=== PATIENT | male | born 1950 | race Asian ===

== ENCOUNTER 2016-10-11 10:47 | Day surgery (SDC) | payer BC ==
[~2016-10-11] VITALS: Ht 182.9 cm; Wt 63.2 kg
[2016-10-11 12:36] VITALS: Ht 182.9 cm; Wt 63.2 kg
[2016-10-11] MEDS ORDERED: IBUPROFEN PO (12:43)
[2016-10-11 14:22] VITALS: BP 155/83; PULSE 65; RESP 16
[2016-10-11] MEDS ORDERED: MIDAZOLAM 1 MG/ML 2 ML INJ ONE (16:01)
[2016-10-11] MEDS ORDERED: PROPOFOL 40 ML ONE (16:47)
[2016-10-11 17:10] VITALS: BP 114/69; PULSE 64; RESP 12
--- NOTE | 2016-10-11 20:18 | OPR ---
Date/Time of Note Date/Time of Note DATE: 10/11/16 TIME: 20:16 Operative Report Preoperative Diagnosis * Colorectal cancer screening Postoperative Diagnosis Impression: * 4 mm sessile polyp descending colon. Ablated * Moderate-sized internal hemorrhoids. * Otherwise normal colonoscopy to cecum. Plan: * Follow-up in the office as previously scheduled * Review pathology * Annual Hemoccult stool testing * Surveillance colonoscopy in 5 years . Operation/Procedure Performed * Colonoscopy with polyp ablation . Surgeon: PATIENCE AVENDANO MD Anesthesia: MAC Estimated Blood Loss: none Specimens * Descending colon polyp Grafts/Implants * None Complications: None PATIENCE AVENDANO MD Oct 11, 2016 20:18
== END 2016-10-11 21:13 | disposition home or self-care (01) ==
LOC: GIL 10:47
PROVIDERS: ATTEND Internal Medicine Gastroenterology
DX: Z12.11 Encounter for screening for malignant neoplasm of colon (principal); K64.8 Other hemorrhoids; D12.4 Benign neoplasm of descending colon; I10 Essential (primary) hypertension; F41.9 Anxiety disorder, unspecified
CPT/HCPCS: 45380; 88305; J2250